=== PATIENT | male | born 1995 | race Asian ===

== ENCOUNTER 2018-08-29 13:52 | Emergency (ER) | payer BC ==
[2018-08-29] MEDS ORDERED: Ibuprofen TAB* 600 MG PO ONE (14:11)
[2018-08-29 14:15] VITALS: BP 118/75
--- NOTE | 2018-08-29 14:41 | UC ---
General HPI - HPI Summary HPI Summary: Patient presents with an unremarkable past medical history. He presents with 4 day onset general fatigue,malaise, fever, sore throat and mild episodes of diarrhea. He states other members in the house have been sick. He reports his immunizations are up to date, and no recent travel. - History of Current Complaint Chief Complaint: UCRespiratory Stated Complaint: HEADACHE,CONGESTION Time Seen by Provider: 08/29/18 14:28 Onset/Duration: Sudden Onset, Lasting Days Timing: Constant Onset Severity: Moderate Current Severity: Moderate Pain Intensity: 2 Associated Signs & Symptoms: Positive: Diarrhea, Fever, Weakness - Allergy/Home Medications Allergies/Adverse Reactions: Allergies Allergy/AdvReac Type Severity Reaction Status Date / Time amoxicillin Allergy Rash Verified 08/29/18 14:15 Home Medications: Home Medications Dm/P-Ephed/Acetaminoph/Doxylam [Atiya [place] Plus Severe 10-12.5-20-650 mg] 1 pow PO 08/29/18 [History] PMH/Surg Hx/FS Hx/Imm Hx Previously Healthy: Yes - Surgical History Surgical History: Yes Surgery Procedure, Year, and Place: adnoids age 6, wisdom teeth extraction - Family History Family History: colon cancer - Social History Occupation: Student Lives: Dormitory/Roommates Alcohol Use: Occasionally Substance Use Type: None Smoking Status (MU): Never Smoked Tobacco Review of Systems All Other Systems Reviewed And Are Negative: Yes Constitutional: Positive: Fever Skin: Positive: Negative Eyes: Positive: Negative ENT: Positive: Sore Throat Respiratory: Positive: Negative Cardiovascular: Positive: Negative Gastrointestinal: Positive: Diarrhea Genitourinary: Positive: Negative Motor: Positive: Negative Neurovascular: Positive: Negative Musculoskeletal: Positive: Negative Neurological: Positive: Negative Psychological: Positive: Negative Physical Exam Triage Information Reviewed: Yes Appearance: Ill-Appearing Vital Signs: Initial Vital Signs Temp 102.4 F 08/29/18 14:10 Pulse 102 08/29/18 14:10 Resp 18 08/29/18 14:10 BP 118/75 08/29/18 14:10 Pulse Ox 98 08/29/18 14:10 Vital Signs Reviewed: Yes Eye Exam: Normal ENT Exam: Normal ENT: Positive: Pharyngeal erythema, Tonsillar exudate Neck exam: Normal Neck: Positive: 1 Respiratory Exam: Normal Cardiovascular Exam: Normal Abdominal Exam: Normal Musculoskeletal Exam: Normal Neurological Exam: Normal Psychological Exam: Normal Skin Exam: Normal Course/Dx - Course Course Of Treatment: Patient presents with 4 days of fatigue malasie, fever and sore throat. VS reveal a temp of 102.6 and pulse of 102. I apprecaite the abnormal VS however the patient these result from no fever controll and throat infection. Influenza screen was negative, strep throat was negative. However clinical exam reveal exudate of the tonsils so he was treated with zpk, told to drink plenty of fluids, tylenol and advil alternate every 4 hours, rest and recheck in 48 hours. - Differential Dx - Multi-Symptom Differential Diagnoses: Other - exudative pharyngitis Provider Diagnoses: exudative pharyngitis Discharge - Sign-Out/Discharge Documenting (check all that apply): Patient Departure All imaging exams completed and their final reports reviewed: No Studies - Discharge Plan Condition: Stable Disposition: HOME Prescriptions: Azithromycin TAB* [Zithromax TAB (Z-HARVEY) 250 mg #6 tabs] 250 mg PO DAILY #6 tab Patient Education Materials: Pharyngitis (ED) Referrals: No Primary Care Phys,NOPCP [Primary Care Provider] - Additional Instructions: Make sure you take tylenll 650 mg alternating with advil 400 mg every fours hours, increase fluids, and rest . Follow up in 48 hours for recheck. - Billing Disposition and Condition Condition: STABLE Disposition: Home - Attestation Statements Document Initiated by Scribe: No Scribe Documentation Reviewed: No
== END 2018-08-29 15:10 | disposition home or self-care (01) ==
LOC: UCEAST 13:52
DX: J02.9 Acute pharyngitis, unspecified (principal); R53.83 Other fatigue; R53.81 Other malaise; R50.9 Fever, unspecified; R19.7 Diarrhea, unspecified; Z88.0 Allergy status to penicillin
CPT/HCPCS: 87651; 99202; A9270-GY; G0463